=== PATIENT | female | born 1995 | race Caucasian/White ===

== ENCOUNTER 2017-03-18 05:56 | Day surgery (SDC) | payer OTHER ==
[2017-03-17 10:40] VITALS: BMI 35.4
--- NOTE | 2017-03-18 01:26 | HP ---
DATE OF OPERATION: 03/18/2017 CHIEF COMPLAINT: Fallopian tube blockage and missed versus molar . HISTORY OF PRESENT ILLNESS: This is a 21-year-old G2, P0-0-2-0 at approximately 7 weeks and 0 days b y embryo transfer date that presented to the ER on 03/13/2017, with acute moderate to heavy v aginal bleeding and approximately 6+ weeks gestation. She had an ultrasound in the ER that showed a 6-week intrauterine with cardiac activity and the hCG level was 15,000. Her bleeding subsi ded later that night and she denies any vaginal bleeding since then. She had an ultrasound in [place] today that showed hydropic appearing villi that could be consistent with a partial molar pregnanc y. Yesterday her hCG had dropped to 1200. She denies any pain or fever. She also has a prolonged h istory of infertility including a history of an ectopic in 2016 on her right side, status p ost salpingectomy for that; however, has had evaluation of her remaining fallopian tube that revealed it is also blocked and diseased. The patient does plan to undergo an additional IVF cycle once she is cleared from this loss. CURRENT MEDICATIONS: Synthroid 75 mcg p.o. daily. PAST MEDICAL HISTORY: Overweight, depression, and hypothyroidism. PAST SURGICAL HISTORY: Salpingectomy, right side in 2016. OB HISTORY: As above. GYNECOLOGIC HISTORY: No abnormal paps. No STDs. SOCIAL HISTORY: Negative x3. ALLERGIES: No known drug allergies. FAMILY HISTORY: Hypertension. REVIEW OF SYSTEMS: Negative except as noted in the HPI. PHYSICAL EXAMINATION: VITAL SIGNS: Blood pressure 116/72, respirations 18, weight 203. BMI is 36.0, pulse is 76. GENERAL: No acute distress. CARDIAC: Regular rate and rhythm. LUNGS: Clear to auscultation bilaterally. ABDOMEN: Soft, nontender, nondistended. EXTREMITIES: No edema, cyanosis or clubbing. PELVIC: Deferred to the OR. ASSESSMENT AND PLAN: This is a 21-year-old G2, P0-0-2-0 with missed versus molar needing definitive diagnosis for tissue suction D and C. Since patient will be under general a nesthesia, we will take the advantage to do a diagnostic laparoscopy and evaluate the left fallopian tube. If in any way the left fallopian tube appears abnormal, would plan salpingectomy on that side. The patient understands this will render her sterile for spontaneous conception. However, the angelita ent understands that this is highly unlikely and plans on future IFV versus surrogacy versus adoption . Risks, benefits, and alternatives were discussed with the patient including risk of bleeding, infe ction, damage to surrounding structures, and the patient voices understanding and wishes to proceed. Postop pain medications were already called out. She will follow up with me in 2 weeks postoperativ e time. The patient is Rh positive.
[2017-03-18 06:41] LABS: #Basophils 0.1 thou/uL (0.0-0.2); #Eosinphils 0.4 thou/uL (0.0-0.7); #Lymphocytes 3.3 thou/uL (1.20-3.40); #Monocytes 0.7 thou/uL (0.11-0.59); #Neutrophils 4.9 thou/uL (1.40-6.50); %Basophils 1.1 % (0.0-1.0); %Lymphocytes 35.3 % (21.0-51.0); %Monocytes 7.3 % (0.0-10.0); %Neutrophils 52.3 % (42.0-75.0); Mean Corpuscular HGB CONC 34.3 g/dL (32.0-36.0); Mean Corpuscular Hemoglobin 30.4 pg (27.0-31.0); Mean Corpuscular Volume 88.8 fl (81.0-99.0); Mean Platelet Volume 7.8 fL (7.4-10.4); Platelet Count 287 thou/uL (130-400); RBC Distribution Width 12.4 % (11.5-14.5); Red Blood Cell (RBC) Count 4.92 mill/uL (4.20-5.40); White Blood Cell (WBC) Count 9.4 thou/uL (4.8-10.8)
[2017-03-18 06:49] LABS: ALT (SGPT) 13 U/L (8-55); AST (SGOT) 15 U/L (5-34); Albumin 3.8 g/dL (3.5-5.0); Alkaline Phosphatase 46 U/L (40-150); Anion Gap 14 mmol/L (10-20); BUN (Urea Nitrogen) 11 mg/dL (7.0-18.7); Bilirubin, Direct 0.3 mg/dL (0.1-0.3); Bilirubin, Total 0.6 mg/dL (0.2-1.2); Calc. Creatinine Clearance 184 mL/min (70-130); Calcium 9.4 mg/dL (7.8-10.44); Carbon Dioxide 20 mmol/L (22-29); Chloride 108 mmol/L (98-107); Estimated GFR-MDRD Greater than 90; Glucose 94 mg/dL (70-105); Potassium 3.6 mmol/L (3.5-5.1); Protein, Total 6.9 g/dL (6.0-8.3); Sodium 138 mmol/L (136-145)
[2017-03-18] MEDS ORDERED: HYDROmorphone 0.5 MG/0.5 ML SYRINGE ONE (06:50)
[2017-03-18] MEDS ORDERED: Misoprostol 200 MCG TAB ONE (06:52)
[2017-03-18] MEDS ORDERED: Bupivacaine/Epinephrine 0.25% 30 ML VIAL ONE (06:52)
[2017-03-18] MEDS ORDERED: Promethazine HCl 25 MG/ML VIAL ONE (07:19)
[2017-03-18] MEDS ORDERED: Midazolam HCl 2 mg/2 ml Vial ONE (07:19)
[2017-03-18] MEDS ORDERED: Fentanyl 100 MCG/2 ML VIAL ONE (07:48)
--- NOTE | 2017-03-18 08:02 | RAD ---
2 VIEWS CHEST: Date: 03/18/17 COMPARISON: None. HISTORY: Preoperative patient. FINDINGS: There is no pneumothorax, pleural fluid, focal consolidation, or alveolar edema. Heart and mediastina l contours unremarkable. IMPRESSION: No acute findings. POS: [facility]
[2017-03-18] MEDS ORDERED: Oxytocin 10 UNITS/ML VIAL ONE (08:22)
[2017-03-18] MEDS ORDERED: Ketorolac Tromethamine 30 MG/ML VIAL ONE ×2 (09:14→13:57)
[2017-03-18] MEDS ORDERED: Morphine 4 MG/ML VIAL SLOW IVP PRN (09:43)
[2017-03-18] MEDS ORDERED: HYDROcodone/Acetaminophen 5/325 mg Tablet PO PRN ×2 (09:44)
[2017-03-18] MEDS ORDERED: Doxycycline 100 MG CAP PO SCH (09:45)
[2017-03-18] MEDS ORDERED: Lactated Ringer's 1,000 ML IV SCH (09:45)
[2017-03-18] MEDS ORDERED: Ondansetron HCl/PF 4 MG/2 ML Vial IVP PRN (09:45)
[2017-03-18] MEDS ORDERED: Morphine 4 MG/ML VIAL ONE (09:52)
--- NOTE | 2017-03-18 11:41 | OP ---
DATE OF OPERATION: 03/18/2017 PREOPERATIVE DIAGNOSES: 1. Missed versus molar at 7 weeks. 2. Chronic pelvic pain. 3. Female infertility of tubal origin. POSTOPERATIVE DIAGNOSES: 1. Missed at 7 weeks. 2. Left fallopian tube isthmica nodosa. 3. Pelvic peritoneal endometriosis. PROCEDURE PERFORMED: Diagnostic laparoscopy, left salpingectomy, fulguration of endometriosis and navarro ction dilation and curettage. ATTENDING PHYSICIAN: Loli Napier M.D. SUPER[employer] DEPARTMENT: None. ANESTHESIA: General endotracheal. ESTIMATED BLOOD LOSS: 15 mL. INTRAVENOUS FLUIDS: 1100 crystalloid. URINE OUTPUT: 200 mL of clear urine at the beginning. PATHOLOGY: Products of conception and left fallopian tube. FINDINGS: On intra-abdominal survey, the upper abdomen was within normal limits. The appendix was n ormal appearing. The uterus had normal contours and was slightly enlarged secondary to the patient's state. The right fallopian tube was surgically absent. The right and left ovaries were no rmal bilaterally. The left fallopian tube had a nodular appearance. There were scattered black and red endometriotic implants over the left pelvic sidewall and the right uterosacral ligament and poste rior cul-de-sac. OPERATIVE TECHNIQUE: The patient was taken to the operating room where general anesthesia was obtain ed without difficulty. The patient was prepped and draped in a sterile fashion in the dorsal lithoto my position. After a red rubber ring to drain the bladder, a speculum was placed in the vagina and a single-tooth Hulka manipulator was placed into the uterus. The speculum was removed. The legs were placed in low lithotomy. Attention was turned to the abdomen. A 5 mm infraumbilical incision was m jimmie and the Veress needle was passed into the abdomen noting an opening pressure of 6 mmHg. Pneumope ritoneum was attained without difficulty. The 5 mm trocar and camera were advanced optically into th e abdomen and a steep Trendelenburg was obtained. A 5 mm left lateral port was placed after infiltra ting with 0.25% Marcaine with epinephrine under direct visualization. Manipulation of the pelvic str uctures and the upper abdominal structures were performed to note the above findings. Photodocumenta tion was also performed. A right lower quadrant port was also placed with 5 mm under direct visualiz ation after infiltrating with 0.25% Marcaine with epinephrine. The blunt tip LigaSure was then used to perform the left salpingectomy cauterized and sequentially transecting the mesosalpinx until the u terine cornua was met. The fallopian tube was clamped across, cauterized and transected, and this wa s placed in the anterior cul-de-sac. At that time, the monopolar [place] was used to fulgurate the endometriotic implants. There were approximately 5 on the left pelvic sidewall. There were two in t he posterior cul-de-sac and there were 6 different spots on the right lower pelvis just lateral to th e uterosacral ligament. There was no active bleeding noted and the left fallopian tube was then gras ped and removed out of the abdomen. At that time, attention was turned back down to the vagina. The speculum was placed in the vagina and a progressive dilation of the cervix was performed, a cm sucti on curette was chosen for the suction curettage and the pressure was checked on the suction device wi th a maximum of 55 mmHg. A 7 mm curette was inserted into the uterus while under direct visualizatio n of the laparoscopy to ensure no uterine perforation and products of conception returned through the tubing. Once there was minimal blood and products returning, a sharp curettage was gently performed through all uterine pierce until a gritty texture was noted. The suction curette was free, again ins erted into the uterus and there was minimal endometrial tissue and minimal blood that returned. Ther e was no active bleeding of the cervix; therefore, the procedure was concluded. The tenaculum was re moved off the cervix. No active bleeding was again noted. The speculum and all instruments were rem stephanie out of the vagina and during the suction portion of the procedure, Pitocin was administered. Th ere was no perforation on laparoscopic visualization of the suction dilation and curettage and the la paroscope was then removed as well as all ports. Pneumoperitoneum was released. The rest of the 0.2 5% Marcaine with epinephrine was infiltrated into the incisions and the incisions were closed with a 4-0 Monocryl in a subcuticular fashion and Dermabond was applied. The patient tolerated the procedur e well. Sponge, lap, and needle counts were correct x2. The patient was taken to recovery room in s table condition. The patient received doxycycline 100 mg prior to the procedure.
[2017-03-18] MEDS ORDERED: Lidocaine 1% PF 5 ML VIAL ONE (13:57)
[2017-03-18] MEDS ORDERED: PROPOFOL 200 MG/20 ML VIAL ONE (13:57)
[2017-03-18] MEDS ORDERED: Dexamethasone 20 MG/5 ML VIAL ONE (13:57)
[2017-03-18] MEDS ORDERED: Ondansetron HCl/PF 4 MG/2 ML Vial ONE (13:57)
[2017-03-18] MEDS ORDERED: Glycopyrrolate 0.2 MG/ML 5 ML SYRINGE ONE (13:57)
== END 2017-03-18 11:55 | disposition home or self-care (01) ==
LOC: SDC 05:56
PROVIDERS: ATTEND Student in an Organized Health Care Education/Training Program
PROC: 0UDB7ZX Extraction of Endometrium, Via Natural or Artificial Opening, Diagnostic (ICD-10-PCS; principal; 2017-03-18)
PROC: 0UT64ZZ Resection of Left Fallopian Tube, Percutaneous Endoscopic Approach (ICD-10-PCS; principal; 2017-03-18)
PROC: [UNRECOGNIZED PROCEDURE] (principal; 2017-03-18)
DX: O02.1 Missed abortion (principal); N70.11 Chronic salpingitis; N80.3 Endometriosis of pelvic peritoneum; E66.3 Overweight; O99.341 Other mental disorders complicating pregnancy, first trimester; F32.9 Major depressive disorder, single episode, unspecified; O99.281 Endocrine, nutritional and metabolic diseases complicating pregnancy, first trimester; E03.9 Hypothyroidism, unspecified; Z3A.01 Less than 8 weeks gestation of pregnancy; Z68.35 Body mass index [BMI] 35.0-35.9, adult; Z79.899 Other long term (current) drug therapy; Z90.79 Acquired absence of other genital organ(s)
CPT/HCPCS: 36415; 71046; 80048; 80076; 84702; 85025; 86850; 86900; 86901; 88304; 88305; J1100; J1170; J1885; J2001; J2250; J2270; J2405; J2550; J2590; J2704; J3010; J7050